=== PATIENT | female | born 1965 | race Caucasian/White ===

== ENCOUNTER → 2019-05-10 09:16 | Outpatient (CLI) | payer OTHER, SELFPAY ==
[2019-05-10 09:50] LABS: Add Manual Diff / Slide Review NO; Basophils Absolute Auto 100 /uL (0-100); Basophils Percent Auto 2.4 % (0-2); Eosinophils Absolute Auto 100 /uL (0-450); Eosinophils Percent Auto 1.2 % (2-4); Hematocrit 37.8 % (36-46); Hemoglobin 12.9 g/dL (12.0-16.0); Lymphocytes Absolute Auto 1600 /uL (1100-4500); Lymphocytes Percent Auto 28.8 % (25-40); Mean Corpuscular HGB Conc 34.1 % (30-36); Mean Corpuscular Hemoglobin 30.1 PG (26-34); Mean Corpuscular Volume 88.2 fL (80-100); Monocytes Absolute Auto 500 /uL (0-900); Monocytes Percent Auto 8.1 % (3-14); Neutrophils Absolute Auto 3300 /uL (1500-7000); Neutrophils Percent Auto 59.5 % (50-75); Platelet Count 287 X10^3/uL (150-400); Red Blood Cell Count 4.28 X10^6/uL (4.0-5.2); Red Cell Distribution Width 13.1 % (11.6-14.8); White Blood Cell Count 5.6 X10^3/uL (4.5-11.0)
[2019-05-10 10:07] LABS: Alanine Aminotransferase 23 IU/L (9-52); Albumin 4.7 g/dL (3.5-5.0); Albumin Globulin Ratio 1.5 (1.0-2.8); Alkaline Phosphatase 89 U/L (38-126); Aspartate Aminotransferase 32 IU/L (14-36); BUN Creatinine Ratio 17.5 (6-22); Bilirubin Total 0.5 mg/dL (0.2-1.3); Blood Urea Nitrogen 14 mg/dL (7-17); Calcium 9.3 mg/dL (8.4-10.2); Carbon Dioxide 28 mmol/L (22-32); Chloride 105 mmol/L (98-107); Estimated Glomerular Filt Rate > 60.0 mL/min (>60); Globulin 3.1 g/dL (1.7-4.1); Glucose 110 mg/dL (70-100); HEMOLYSIS < 15 (0-50); Potassium 4.5 mmol/L (3.4-5.1); Sodium 140 mmol/L (137-145); Total Protein 7.8 g/dL (6.3-8.2)
[2019-05-10 10:34] LABS: Vitamin D 25 Hydroxy (D3) 21.7 ng/mL (30.0-100.0)
[2019-05-10 11:23] LABS: Thyroid Stimulating Hormone 3.58 uIU/mL (0.47-4.68)
== END ==
PROVIDERS: PCP Internal Medicine; Visit Provider Internal Medicine
DX: Z00.00 Encounter for general adult medical examination without abnormal findings (principal); N95.9 Unspecified menopausal and perimenopausal disorder; Z13.220 Encounter for screening for lipoid disorders
CPT/HCPCS: 36415; 80053; 82306; 84443; 85025

== ENCOUNTER → 2019-09-01 07:46 | Outpatient (CLI) | payer OTHER, SELFPAY ==
--- NOTE | 2019-09-01 | DI.MG.S_ITS ---
BILATERAL DIGITAL SCREENING MAMMOGRAM 3D/2D WITH CAD: 09/01/2019 CLINICAL: Routine screening. Comparison is made to exams dated: 09/18/2015 mammogram, 10/03/2016 mammogram, and 11/14/2017 mammogram - [facility]. The tissue of both breasts is heterogeneously dense. This may lower the sensitivity of mammography. Current study was also evaluated with a Computer Aided Detection (CAD) system. No significant masses, calcifications, or other findings are seen in either breast. There has been no significant interval change. IMPRESSION: NEGATIVE There is no mammographic evidence of malignancy. A 1 year screening mammogram is recommended. This exam was interpreted at Station ID: [id number]. NOTE: For mammograms, a report in lay terms will be sent to the patient. Approximately 15% of breast malignancies will not be visualized mammographically. In the management of a palpable breast mass, a negative mammogram must not discourage biopsy of a clinically suspicious lesion. Electronically Signed By: Gus salomon/santos:09/03/2019 09:11:44 letter sent: Normal Exam ACR BI-RADS Category 1: Negative 3341F
== END ==
PROVIDERS: PCP Internal Medicine; Visit Provider Internal Medicine
DX: Z12.31 Encounter for screening mammogram for malignant neoplasm of breast (principal)
CPT/HCPCS: 77063; 77067

== ENCOUNTER → 2020-03-17 11:51 | Outpatient (CLI) | payer OTHER, SELFPAY ==
--- NOTE | 2020-03-17 11:56 | DI.RAD.S_ITS ---
PROCEDURE: XR FOOT RT MIN 3V INDICATIONS: RT FOOT PAIN TECHNIQUE: 3 views of the foot were acquired. COMPARISON: None. FINDINGS: Bones: Small linear lucency projects in the distal phalanx of the great toe however not seen on any other projections. Elsewhere, no fracture. Plantar calcaneal spur. Soft tissues: No tibiotalar joint effusion. Achilles tendon appears normal. IMPRESSION: Subtle linear lucency projecting in the distal phalanx of the great toe raising possibility of (possibly complete) fracture. Please correlate clinically to point tenderness as this finding technically indeterminate. If the patient's symptoms do not improve recommend followup radiographs in 10 days to assess for healing sclerosis/occult injury. Plantar calcaneal spur. Dictated by: Dimitri Castillo M.D. on 03/17/2020 at 13:16 Approved by: Dimitri Castillo M.D. on 03/17/2020 at 13:23
== END ==
PROVIDERS: PCP Internal Medicine; Referring Provider Internal Medicine; Visit Provider Internal Medicine
DX: M79.674 Pain in right toe(s) (principal); M77.31 Calcaneal spur, right foot
CPT/HCPCS: 73630

== ENCOUNTER → 2020-10-30 07:53 | Outpatient (CLI) | payer OTHER, SELFPAY ==
[2020-10-30 09:03] LABS: Add Manual Diff / Slide Review NO; Basophils Absolute Auto 100 /uL (0-100); Basophils Percent Auto 1.2 % (0-2); Eosinophils Absolute Auto 100 /uL (0-450); Eosinophils Percent Auto 1.3 % (2-4); Hemoglobin 12.6 g/dL (12.0-16.0); Lymphocytes Absolute Auto 1400 /uL (1100-4500); Lymphocytes Percent Auto 27.7 % (25-40); Mean Corpuscular HGB Conc 33.3 % (30-36); Mean Corpuscular Hemoglobin 28.8 PG (26-34); Mean Corpuscular Volume 86.7 fL (80-100); Monocytes Absolute Auto 500 /uL (0-900); Monocytes Percent Auto 8.9 % (3-14); Neutrophils Absolute Auto 3100 /uL (1500-7000); Neutrophils Percent Auto 60.9 % (50-75); Platelet Count 305 X10^3/uL (150-400); Red Blood Cell Count 4.38 X10^6/uL (4.0-5.2); Red Cell Distribution Width 13.1 % (11.6-14.8); White Blood Cell Count 5.1 X10^3/uL (4.5-11.0)
[2020-10-30 09:16] LABS: Alanine Aminotransferase 28 IU/L (<35); Albumin 4.8 g/dL (3.5-5.0); Albumin Globulin Ratio 1.7 (1.0-2.8); Alkaline Phosphatase 85 U/L (38-126); Aspartate Aminotransferase 41 IU/L (14-36); BUN Creatinine Ratio 19.7 (6-22); Bilirubin Total 0.4 mg/dL (0.2-1.3); Blood Urea Nitrogen 13 mg/dL (7-17); Calcium 10.1 mg/dL (8.4-10.2); Carbon Dioxide 26 mmol/L (22-32); Chloride 103 mmol/L (98-107); Cholesterol 270 mg/dL (140-199); Estimated Glomerular Filt Rate > 60.0 mL/min (>60); Globulin 2.8 g/dL (1.7-4.1); Glucose 112 mg/dL (70-100); HDL Cholesterol 72 mg/dL (40-60); HEMOLYSIS < 15 (0-50); LDL Cholesterol Calculated 170 mg/dL (<100); Potassium 4.1 mmol/L (3.4-5.1); Sodium 139 mmol/L (137-145); Total Protein 7.6 g/dL (6.3-8.2); Triglycerides 139 mg/dL (35-150)
[2020-10-30 09:19] LABS: HEMOLYSIS < 15 (0-50); Iron 80 ug/dL (37-170)
[2020-10-30 09:25] LABS: Vitamin D 25 Hydroxy (D3) 31.3 ng/mL (30.0-100.0)
[2020-10-30 09:29] LABS: Percent Iron Saturation 27 % (15-50); Total Iron Binding Capacity 301 ug/dL (265-497); Transferrin 260 mg/dL (206-381)
[2020-10-30 09:45] LABS: Ferritin 49 ng/mL (11-264)
== END ==
PROVIDERS: PCP Physician Assistant; Referring Provider Physician Assistant; Visit Provider Physician Assistant
DX: G25.81 Restless legs syndrome (principal); N95.2 Postmenopausal atrophic vaginitis; E78.2 Mixed hyperlipidemia; E55.9 Vitamin D deficiency, unspecified
CPT/HCPCS: 36415; 80053; 80061; 82306; 82728; 83540; 83550; 84443; 85025

== ENCOUNTER → 2020-12-29 12:44 | Outpatient (CLI) | payer OTHER, SELFPAY ==
--- NOTE | 2020-12-29 | DI.MG.S_ITS ---
BILATERAL DIGITAL SCREENING MAMMOGRAM 3D/2D WITH CAD: 12/29/2020 CLINICAL: Routine screening. Comparison is made to exams dated: 09/01/2019 mammogram - [facility], 11/14/2017 mammogram, 10/03/2016 mammogram, and 09/18/2015 mammogram - [facility]. The tissue of both breasts is heterogeneously dense. This may lower the sensitivity of mammography. Current study was also evaluated with a Computer Aided Detection (CAD) system. No significant masses, calcifications, or other findings are seen in either breast. There has been no significant interval change. IMPRESSION: NEGATIVE There is no mammographic evidence of malignancy. A 1 year screening mammogram is recommended. This exam was interpreted at Station ID: [id number]. NOTE: For mammograms, a report in lay terms will be sent to the patient. Approximately 15% of breast malignancies will not be visualized mammographically. In the management of a palpable breast mass, a negative mammogram must not discourage biopsy of a clinically suspicious lesion. Electronically Signed By: Bryce fletcher/santos:12/29/2020 15:10:43 letter sent: Normal Exam ACR BI-RADS Category 1: Negative 3341F
== END ==
PROVIDERS: PCP Physician Assistant; Referring Provider Physician Assistant; Visit Provider Physician Assistant
DX: Z12.31 Encounter for screening mammogram for malignant neoplasm of breast (principal)
CPT/HCPCS: 77063; 77067

== ENCOUNTER → 2022-01-08 15:10 | Outpatient (CLI) | payer OTHER, SELFPAY ==
--- NOTE | 2022-01-08 15:12 | DI.MG.S_ITS ---
BILATERAL DIGITAL SCREENING MAMMOGRAM 3D/2D WITH CAD: 01/08/2022 CLINICAL: Routine screening. Comparison is made to exams dated: 12/29/2020 mammogram, 09/01/2019 mammogram - [facility], and 11/14/2017 mammogram - [facility]. The tissue of both breasts is heterogeneously dense. This may lower the sensitivity of mammography. Current study was also evaluated with a Computer Aided Detection (CAD) system. No significant masses, calcifications, or other findings are seen in either breast. There has been no significant interval change. IMPRESSION: NEGATIVE There is no mammographic evidence of malignancy. A 1 year screening mammogram is recommended. This exam was interpreted at Station ID: [id number]. NOTE: For mammograms, a report in lay terms will be sent to the patient. Approximately 15% of breast malignancies will not be visualized mammographically. In the management of a palpable breast mass, a negative mammogram must not discourage biopsy of a clinically suspicious lesion. Electronically Signed By: Jacque culp/santos:01/08/2022 16:45:44 letter sent: Normal Exam ACR BI-RADS Category 1: Negative 3341F
== END ==
PROVIDERS: PCP Physician Assistant; Referring Provider Physician Assistant; Visit Provider Physician Assistant
DX: Z12.31 Encounter for screening mammogram for malignant neoplasm of breast (principal)
CPT/HCPCS: 77063; 77067

== ENCOUNTER → 2023-02-21 07:59 | Outpatient (CLI) | payer OTHER, SELFPAY ==
--- NOTE | 2023-02-21 08:02 | DI.MG.S_ITS ---
BILATERAL DIGITAL SCREENING MAMMOGRAM 3D/2D WITH CAD: 02/21/2023 CLINICAL: Routine screening. Comparison is made to exams dated: 01/08/2022 mammogram, 12/29/2020 mammogram, and 09/01/2019 mammogram - [facility]. Both breasts are heterogeneously dense, which may obscure small masses (category c / 51-75% glandular tissue). Current study was also evaluated with a Computer Aided Detection (CAD) system. No significant masses, calcifications, or other findings are seen in either breast. There has been no significant interval change. IMPRESSION: NEGATIVE There is no mammographic evidence of malignancy. A 1 year screening mammogram is recommended. Based on the Tyrer Cuzick model (a risk assessment model) the patient's lifetime risk is 14.9% and her 10 year risk is 5.3%. According to the ACR, ACS, and NCCN guidelines, an annual breast MRI exam along with mammogram is recommended if the patient's lifetime risk is 20% or greater. This exam was interpreted at Station ID: [id number]. NOTE: For mammograms, a report in lay terms will be sent to the patient. Approximately 15% of breast malignancies will not be visualized mammographically. In the management of a palpable breast mass, a negative mammogram must not discourage biopsy of a clinically suspicious lesion. Electronically Signed By: Everton moran/santos:02/21/2023 11:09:00 letter sent: Normal Exam ACR BI-RADS Category 1: Negative 3341F
== END ==
PROVIDERS: PCP Physician Assistant; Referring Provider Physician Assistant; Visit Provider Physician Assistant
DX: Z12.31 Encounter for screening mammogram for malignant neoplasm of breast (principal)
CPT/HCPCS: 77063; 77067

== ENCOUNTER → 2024-02-25 10:54 | Outpatient (CLI) | payer OTHER, SELFPAY ==
--- NOTE | 2024-02-25 10:55 | DI.MG.S_ITS ---
BILATERAL DIGITAL SCREENING MAMMOGRAM 3D/2D WITH CAD: 02/25/2024 CLINICAL: Routine screening. Comparison is made to exams dated: 02/21/2023 mammogram, 01/08/2022 mammogram, and 12/29/2020 mammogram - . Both breasts are heterogeneously dense, which may obscure small masses (category c / 51-75% glandular tissue). Current study was also evaluated with a Computer Aided Detection (CAD) system. No significant masses, calcifications, or other findings are seen in either breast. There has been no significant interval change. IMPRESSION: NEGATIVE There is no mammographic evidence of malignancy. A 1 year screening mammogram is recommended. Based on the Tyrer Cuzick model (a risk assessment model) the patient's lifetime risk is 14.7% and her 10 year risk is 5.6%. According to the ACR, ACS, and NCCN guidelines, an annual breast MRI exam along with mammogram is recommended if the patient's lifetime risk is 20% or greater. This exam was interpreted at Station ID: [id number]. NOTE: For mammograms, a report in lay terms will be sent to the patient. Approximately 15% of breast malignancies will not be visualized mammographically. In the management of a palpable breast mass, a negative mammogram must not discourage biopsy of a clinically suspicious lesion. Electronically Signed By: Jacque culp/santos:03/02/2024 08:54:50 letter sent: Normal Exam ACR BI-RADS Category 1: Negative 3341F
== END ==
PROVIDERS: PCP Physician Assistant; Referring Provider Physician Assistant; Visit Provider Physician Assistant
DX: Z12.31 Encounter for screening mammogram for malignant neoplasm of breast (principal); R92.333 Mammographic heterogeneous density, bilateral breasts
CPT/HCPCS: 77063; 77067

== ENCOUNTER 2024-06-23 11:56 | Day surgery (SDC) | payer OTHER, SELFPAY ==
[2024-06-23 12:43] VITALS: BP 107/74; PULSE 77; RESP 16; TEMP 36.6; O2SAT 100
--- NOTE | 2024-06-23 12:51 | P.HP_ITS ---
History of Present Illness History of Present Illness Chief complaint[place] [facility] [place]ative: Need for screening colonoscopy PFSH Social History Smoking Status: Never smoker Meds Home Medications and Allergies Home Medications Medication Instructions Recorded Confirmed Type bupropion HCl 150 mg 24 hr tablet, 150 mg PO DAILY 06/23/24 06/23/24 History extended release citalopram 20 mg tablet 20 mg PO DAILY 06/23/24 06/23/24 History pramipexole 0.125 mg tablet 0.25 mg PO BID 06/23/24 06/23/24 History Allergies Allergy/AdvReac Type Severity Reaction Status Date / Time No Known Drug Allergies Allergy Verified 06/23/24 12:41 Exam Vital Signs (past 8 hours): - 06/23/24 12:43 Temperature 97.9 F Pulse Rate 77 Respiratory Rate 16 Blood Pressure 107/74 Pulse Oximetry 100 Oxygen Delivery Method Room Air Oxygen Flow Rate 0 Oxygen Delivery Method Room Air Oxygen Flow Rate 0 Narrative Exam Narrative: Oropharynx free of lesions neck supple without adenopathy or thyromegaly Chest clear to auscultation percussion Assessment & Plan Assessment & Plan narrative: Need for screening colonoscopy. Risks, benefits, alternatives have been explained. Time-Based Coding :: [TOTAL MINUTES] spent with patient and on the chart (including review of chart, obtaining history, exam, reviewing outside data, placing orders, documenting exam and treatment plan, and counseling patient) on [DATE].
--- NOTE | 2024-06-23 12:52 | PM.OP.COLON ---
Operative Date/Time/Diagnoses Date of procedure: 06/23/24 Pre-op diagnosis: See indication and findings Procedure & Clinicians Study performed: After informed consent was obtained the patient was placed in left lateral decubitus position. The video colonoscope was placed in the rectum slowly advanced cecum. Preparation was good. On slow withdrawal mucosa was carefully examined. The scope was removed. The patient tolerated procedure well. Blood loss none Complications none Sedation mac Findings 1. Normal colonoscopy to cecum Follow-up colonoscopy should be in 10 years
[2024-06-23 13:55] VITALS: BP 106/79; PULSE 71; RESP 17; TEMP 37.1; O2SAT 97
[2024-06-23 14:00] VITALS: BP 103/66; PULSE 58; RESP 12; TEMP 37; O2SAT 98
[2024-06-23 14:13] VITALS: BP 109/66; PULSE 60; RESP 15; TEMP 36.9; O2SAT 100
== END 2024-06-23 14:30 | disposition home or self-care (01) ==
PROVIDERS: PCP Physician Assistant; Referring Provider Internal Medicine Gastroenterology; Visit Provider Internal Medicine Gastroenterology
PROC: 0DJD8ZZ Inspection of Lower Intestinal Tract, Via Natural or Artificial Opening Endoscopic (ICD-10-PCS; CPT 45378; principal; 2024-06-23 13:30)
DX: Z12.11 Encounter for screening for malignant neoplasm of colon (principal)
CPT/HCPCS: 45378; J2704

== ENCOUNTER → 2024-11-29 17:25 | Outpatient (CLI) | payer OTHER, SELFPAY ==
[2024-11-29 17:49] LABS: Add Manual Diff / Slide Review NO; Basophils Absolute Auto 100 /uL (0-100); Basophils Percent Auto 1.1 % (0-2); Eosinophils Absolute Auto 100 /uL (0-450); Eosinophils Percent Auto 1.6 % (2-4); Hematocrit 38.4 % (36-46); Lymphocytes Absolute Auto 1600 /uL (1100-4500); Mean Corpuscular HGB Conc 33.7 % (30-36); Mean Corpuscular Hemoglobin 30.1 PG (26-34); Mean Corpuscular Volume 89.3 fL (80-100); Monocytes Absolute Auto 500 /uL (0-900); Monocytes Percent Auto 8.5 % (3-14); Neutrophils Absolute Auto 4000 /uL (1500-7000); Neutrophils Percent Auto 62.8 % (50-75); Platelet Count 310 X10^3/uL (150-400); Red Blood Cell Count 4.31 X10^6/uL (4.0-5.2); Red Cell Distribution Width 13.4 % (11.6-14.8); White Blood Cell Count 6.3 X10^3/uL (4.5-11.0)
[2024-11-29 18:09] LABS: Alanine Aminotransferase 41 IU/L (<35); Albumin 4.9 g/dL (3.5-5.0); Albumin Globulin Ratio 1.6 (1.0-2.8); Alkaline Phosphatase 89 U/L (38-126); Aspartate Aminotransferase 47 IU/L (14-36); BUN Creatinine Ratio 17.5 (6-22); Bilirubin Total 0.5 mg/dL (0.2-1.3); Blood Urea Nitrogen 14 mg/dL (7-17); Calcium 9.4 mg/dL (8.4-10.2); Carbon Dioxide 26 mmol/L (22-32); Chloride 103 mmol/L (98-107); Cholesterol 299 mg/dL (140-199); Estimated Glomerular Filt Rate > 60 mL/min (>60); Glucose 101 mg/dL (70-99); HDL Cholesterol 78 mg/dL (40-60); HEMOLYSIS < 15 (0-50); LDL Cholesterol Calculated 194 mg/dL (<100); Potassium 4.1 mmol/L (3.4-5.1); Sodium 139 mmol/L (137-145); Total Protein 7.9 g/dL (6.3-8.2); Triglycerides 135 mg/dL (35-150)
[2024-11-29 18:10] LABS: Hemoglobin A1C% w Est Avg Glu 5.4 % (4.0-6.0)
[2024-11-29 18:26] LABS: Free T3, Triiodothyronine Free 4.39 pg/mL (2.77-5.27); Free T4, Direct Thyroxine 0.87 ng/dL (0.78-2.19)
[2024-11-29 18:40] LABS: Thyroid Stimulating Hormone 2.91 uIU/mL (0.47-4.68)
[2024-11-29 18:44] LABS: Ferritin 37 ng/mL (11-264)
[2024-12-01 04:36] LABS: Apolipoprotein B 123 mg/dL (<90)
[2024-12-01 06:36] LABS: Thyroid Peroxidase Antibodies 12 IU/mL (0-34)
[2024-12-01 07:09] LABS: Insulin Level Total 5.1 uIU/mL (2.6-24.9)
== END ==
PROVIDERS: Naturopath; PCP Physician Assistant; Referring Provider Physician Assistant; Visit Provider Physician Assistant
DX: Z00.00 Encounter for general adult medical examination without abnormal findings (principal); E78.00 Pure hypercholesterolemia, unspecified; G25.81 Restless legs syndrome; R53.83 Other fatigue; Z83.49 Family history of other endocrine, nutritional and metabolic diseases
CPT/HCPCS: 36415; 80053; 80061; 82172; 82728; 83036; 83525; 83695; 84439; 84443; 84481; 85025; 86376

== ENCOUNTER 2024-12-22 01:12 | Emergency (ER) | payer OTHER, SELFPAY ==
[2024-12-22] VITALS (7 sets, daily range): BP systolic 102–119; BP diastolic 64–82; PULSE 70–77; RESP 16–18; TEMP 36.6; O2SAT 95–100; BMI 27.8
--- NOTE | 2024-12-22 01:19 | DI.RAD.S_ITS ---
PROCEDURE: XR FOOT RT MIN 3V INDICATIONS: trip fall w deformity/swelling/pain TECHNIQUE: 3 views of the foot were acquired. COMPARISON: [facility], CR, XR FOOT 3+ VIEWS RIGHT, 07/20/2024, 16:17. [facility], CR, XR FOOT RT MIN 3V, 03/17/2020, 11:47. FINDINGS: Bones: Irregularity at the base of the 1st metatarsal. No dislocations. Mild deformity at the 5th metatarsal is unchanged. Small plantar calcaneal spur. No suspicious bony lesions. Soft tissues: No tibiotalar joint effusion. Achilles tendon appears normal. IMPRESSION: Suspected avulsion fracture at the base of the 1st metatarsal. Recommend correlation for point tenderness. CT may be helpful for further evaluation. Dictated by: Bryce Peterson M.D. on 12/22/2024 at 1:42 Approved by: Bryce Peterson M.D. on 12/22/2024 at 1:47
--- NOTE | 2024-12-22 01:38 | ED_ITS ---
HPI - Extremity Injury (Lower) General Chief Complaint: Extremity Injury, Lower Stated Complaint: right foot injury/fell at home Time Seen by Provider: 12/22/24 01:38 Source: patient Mode of arrival: Ambulatory History of Present Illness HPI Narrative: Patient is a 59-year-old female presenting to day with right foot pain. Reports that she tripped while carrying her dog down some stairs. Only pain and injury is her right foot no other injury. She previously broke that foot. Unable to weightbear has crutches. Related Data Home Medications Medication Instructions Recorded Confirmed bupropion HCl 150 mg 24 hr tablet, 150 mg PO DAILY 06/23/24 06/23/24 extended release citalopram 20 mg tablet 20 mg PO DAILY 06/23/24 06/23/24 pramipexole 0.125 mg tablet 0.25 mg PO BID 06/23/24 06/23/24 Previous Rx's Medication Instructions Recorded hydrocodone 5 mg-acetaminophen 325 1 tab PO Q6H PRN pain #10 tabs 12/22/24 mg tablet Allergies Allergy/AdvReac Type Severity Reaction Status Date / Time No Known Drug Allergies Allergy Verified 06/23/24 12:41 Patient History Social History Smoking Status: Never smoker Smoking Status: Never smoker alcohol intake frequency: a few times a week Exam Initial Vital Signs Initial Vital Signs: Vital Signs Temperature 97.8 F 12/22/24 01:15 Pulse Rate 71 12/22/24 01:15 Respiratory Rate 18 12/22/24 01:15 Blood Pressure 119/82 12/22/24 01:15 Pulse Oximetry 100 12/22/24 01:15 Oxygen Delivery Method Room Air 12/22/24 01:15 GENERAL: Well-appearing, well-nourished and in no acute distress. CARDIOVASCULAR: peripheral pulses in tact, cap refill <2 sec RESPIRATORY: No respiratory distress, speaks in full sentences without difficulty EXTREMITIES: Normal range of motion, no clubbing or edema. Neurovascularly intact Right lower extremity contusion and swelling noted dorsally nontender lateral the 5th metatarsal sides distal pedal pulse intact. She was tender between 1st and 2nd metatarsals she was significant contusion around the 2nd metatarsal NEUROLOGICAL: Cranial nerves II through XII grossly intact. Normal gait and speech. SKIN: Warm, dry, no petechiae, no rashes or lesions. Course Orders Ordered: ED Orders 12/22/24 01:19 XR foot RT min 3V Stat 12/22/24 01:59 XR foot RT min 3V Stat Discontinued Medications Acetaminophen (Acetaminophen 325 Mg Tablet) 975 mg PO NOW ONE Stop: 12/22/24 01:42 Last Admin: 12/22/24 01:45 Dose: 975 mg Documented By: JHOANA Ibuprofen (Ibuprofen 400 Mg Tablet) 400 mg PO NOW ONE Stop: 12/22/24 01:42 Last Admin: 12/22/24 01:44 Dose: 400 mg Documented By: JHOANA Oxycodone HCl (Oxycodone Ir 5 Mg Tablet) 5 mg PO NOW ONE Stop: 12/22/24 02:47 Last Admin: 12/22/24 03:05 Dose: 5 mg Documented By: JHOANA Vital Signs Vital signs: Vital Signs - 8 hr 12/22/24 01:15 12/22/24 01:16 12/22/24 01:17 Temperature 97.8 F Pulse Rate 71 73 70 Respiratory Rate 18 Blood Pressure 119/82 Pulse Oximetry 100 100 100 Oxygen Delivery Method Room Air 12/22/24 01:17 12/22/24 01:30 12/22/24 01:30 Temperature Pulse Rate 71 Respiratory Rate 18 Blood Pressure 119/82 110/72 Pulse Oximetry 99 Oxygen Delivery Method 12/22/24 02:00 12/22/24 02:00 12/22/24 02:30 Temperature Pulse Rate 70 77 Respiratory Rate 18 Blood Pressure 102/64 Pulse Oximetry 97 96 Oxygen Delivery Method 12/22/24 03:00 Temperature Pulse Rate 76 Respiratory Rate 16 Blood Pressure Pulse Oximetry 95 Oxygen Delivery Method MDM - Extremity Injury (Lower) Imaging Data Extremity x-ray #1: Radiologist's Impression: PROCEDURE: XR FOOT RT MIN 3V INDICATIONS: trip fall w deformity/swelling/pain TECHNIQUE: 3 views of the foot were acquired. COMPARISON: [facility], CR, XR FOOT 3+ VIEWS RIGHT, 07/20/2024, 16:17. [facility], CR, XR FOOT RT MIN 3V, 03/17/2020, 11:47. FINDINGS: Bones: Irregularity at the base of the 1st metatarsal. No dislocations. Mild deformity at the 5th metatarsal is unchanged. Small plantar calcaneal spur. No suspicious bony lesions. Soft tissues: No tibiotalar joint effusion. Achilles tendon appears normal. IMPRESSION: Suspected avulsion fracture at the base of the 1st metatarsal. Recommend correlation for point tenderness. CT may be helpful for further evaluation. Dictated by: Bryce Peterson M.D. on 12/22/2024 at 1:42 Extremity x-ray #2: Radiologist's Impression: Weight-bearing right foot x-ray preliminary report: Mildly displaced fracture i nvolving diaphysis of the right 5th metatarsal Similar appearing fracture in the region of the medial base of the 1st metatarsal Lisfranc joint appears intact MDM Narrative Medical decision making narrative: Patient healthy 59-year-old female presenting to day with right foot pain after falling down the stairs. Neurovascularly intact noted to have swelling. No ankle or knee injury. X-ray does show probable base of the 1st metatarsal fracture. She was given Tylenol Motrin and oxycodone here in the ED Initial x-ray does show 1st metatarsal avulsion fracture concern for Lisfranc fracture. Weightbearing x-rays were obtained Lisfranc joint appears intact. She was placed in a orthopedic shoe she has crutches. Elevation pain control and follow up with Orthopedics Discharge Plan Departure Patient Disposition: Home Clinical Impression: Closed fracture of first metatarsal bone Instructions: DI for Toe Fracture Activity Restrictions/Additional Instructions: *You have been diagnosed with toe fracture *What to do: At this time where your orthopedic shoe. *Continue to take medications as directed Tylenol Motrin as needed for pain [place] 1 tablet every 6 hours if needed for severe pain *Follow up with your primary care provider in 2-3 days or call [phone] Call [facility] tomorrow to schedule follow up *Return to ER if you should have increasing pain swelling numbness or any new, worsening or concerning symptoms CONTROLLED SUBSTANCE DISCHARGE (Narcotoic/benzodiazepine/Flexeril/Phenergan) 1. You have been prescribed narcotic medications, it does have acetaminophen/Tylenol/paracetamol in it, DO NOT TAKE MORE THAN 4,00mg in 24 hours of Tylenol. TRAMADOL DOES NOT CONTAIN TYLENOL 2. Please understand that we cannot provide further refills of narcotics, benzodiazepines or controlled substances through the ED and her pain management will need to be through your provider. 3. While on these medications you cannot drive or operate heavy machinery. 4. You cannot sign legal documents or perform any duties such as this. 5. As long as you're taking opiate pain medications he should also be taking a stool softener such as Colace, Dulcolax, MiraLAX or prune juice, to help avoid constipation. Prescriptions: New hydrocodone-acetaminophen 5-325 mg tablet 1 tab PO Q6H PRN (Reason: pain) Qty: 10 0RF No Action citalopram 20 mg tablet 20 mg PO DAILY pramipexole 0.125 mg tablet 0.25 mg PO BID bupropion HCl 150 mg tablet extended release 24 hr 150 mg PO DAILY Referrals: [facility] [Provider Group] Abby Parker PA-C [Primary Care Provider] - Stand Alone Forms: Patient Portal/API/Survey
[2024-12-22] MEDS: IBUPROFEN 400 MG TABLET PO (01:44)
[2024-12-22] MEDS: ACETAMINOPHEN 325 MG TABLET 975 MG PO (01:45)
--- NOTE | 2024-12-22 01:59 | DI.RAD.S_ITS ---
PROCEDURE: XR FOOT RT MIN 3V INDICATIONS: weight bearing ?Lisfranc TECHNIQUE: 3 views of the foot were acquired. COMPARISON: [facility], CR, XR FOOT RT MIN 3V, 12/22/2024, 1:20. FINDINGS: Bones: Again noted is an acute fracture involving lateral aspect of 1st metatarsal base with slight proximal and lateral displacement of the fractured fragment. There is also an oblique fracture involving 5th metatarsal shaft with minimal dorsal and medial displacement at fracture site. No new fracture or dislocation. Lisfranc joint appears preserved. Soft tissues: No tibiotalar joint effusion. Achilles tendon appears normal. IMPRESSION: Fractures involving lateral aspect of 1st metatarsal base as well as 5th metatarsal shaft with slight displacement at fracture sites. Lisfranc ligament appears preserved. Normal right foot alignment with weight bearing. Dictated by: Rosendo Mac M.D. on 12/22/2024 at 8:03 Approved by: Rosendo Mac M.D. on 12/22/2024 at 8:05
[2024-12-22] MEDS: OXYCODONE IR 5 MG TABLET PO (03:05)
== END 2024-12-22 03:10 | disposition home or self-care (01) ==
PROVIDERS: Emergency Provider Emergency Medicine; PCP Physician Assistant
DX: S92.351A Displaced fracture of fifth metatarsal bone, right foot, initial encounter for closed fracture (principal); W01.0XXA Fall on same level from slipping, tripping and stumbling without subsequent striking against object, initial encounter
CPT/HCPCS: 73630; 99283